=== PATIENT | female | born 1990 | race African-American/Black ===

== ENCOUNTER 2021-02-11 21:45 | Emergency (ER) | payer MEDICAID ==
[~2021-02-11] VITALS: Ht 180.3 cm; Wt 68.0 kg
--- NOTE | 2021-02-11 22:15 | NUR ---
UNABLE TO PROVIDE URINE SAMPLE AT THIS TIME
--- NOTE | 2021-02-11 23:25 | NUR ---
URINE SPECIMEN COLLECTED AND SENT TO LAB
[2021-02-12] MEDS: IV NS 0.9% 1,000 ML IV ONE
--- NOTE | 2021-02-12 01:00 | NUR ---
Patient discharged to home in stable condition. Written and verbal after care instructions given. Patient verbalizes understanding of instruction.
[2021-02-12 01:19] VITALS: BP 124/65
== END 2021-02-12 01:00 | disposition home or self-care (01) ==
LOC: ER 21:51
DX: U07.1 COVID-19 (principal); E86.0 Dehydration; Z88.0 Allergy status to penicillin; Z88.1 Allergy status to other antibiotic agents